=== PATIENT | male | born 1970 | race Two or more races ===

== ENCOUNTER 2017-12-11 15:44 | Emergency (ER) | payer SELFPAY ==
[~2017-12-11] VITALS: Ht 172.7 cm; Wt 72.0 kg
[2017-12-11 16:27] VITALS: BP 116/83
== END 2017-12-11 17:32 | disposition home or self-care (01) ==
LOC: ER 17:27
DX: H66.90 Otitis media, unspecified, unspecified ear (principal)
CPT/HCPCS: 99283

== ENCOUNTER 2022-02-12 17:59 | Emergency (ER) | payer MEDICAID ==
[~2022-02-12] VITALS: Ht 170.2 cm; Wt 82.0 kg
[2022-02-12] MEDS ORDERED: ELVI1TAB3 PO (18:22)
[2022-02-12] MEDS ORDERED: LORA-250 PO (18:22)
[2022-02-12] MEDS ORDERED: HYDROCODONE/ACETAMINOPHEN 5/325MG TABLET PO NR (18:30)
[2022-02-12] MEDS ORDERED: HYDROCODONE/ACETAMINOPHEN 5/325MG TABLET PO ONE (18:30)
[2022-02-12] MEDS ORDERED: IBUP-2029 MT (20:06)
[2022-02-12 20:57] VITALS: BP 136/75
== END 2022-02-12 20:51 | disposition home or self-care (01) ==
LOC: ER 17:59
DX: S46.092A Other injury of muscle(s) and tendon(s) of the rotator cuff of left shoulder, initial encounter (principal); Z21 Asymptomatic human immunodeficiency virus [HIV] infection status; W01.0XXA Fall on same level from slipping, tripping and stumbling without subsequent striking against object, initial encounter; Y93.89 Activity, other specified; Y92.89 Other specified places as the place of occurrence of the external cause; Y99.8 Other external cause status
CPT/HCPCS: 73030; 99283

== ENCOUNTER 2022-03-05 17:29 | Emergency (ER) | payer MEDICAID ==
[~2022-03-05] VITALS: Ht 172.7 cm; Wt 82.0 kg
[~2022-03-05 17:29] MED LIST: ELVI1TAB3 PO; IBUP-2029 MT; LORA-250 PO
[2022-03-05] MEDS ORDERED: IBUPROFEN 400MG TABLET PO ONE (22:30)
[2022-03-05] MEDS ORDERED: CEFTRIAXONE SODIUM 500 MG/VIAL IM ONE (22:30)
[2022-03-05] MEDS ORDERED: AZITHROMYCIN 500 MG TABLET PO ONE (22:30)
[2022-03-05] MEDS ORDERED: LIDOCAINE HCL 1% 20ML VIAL (Pyxis) INJ INFIL ONE (22:30)
[2022-03-05 23:22] VITALS: BP 142/88
[2022-03-06] MEDS ORDERED: IBUP-2028 MT (01:20)
== END 2022-03-06 01:36 | disposition home or self-care (01) ==
LOC: ER 17:29
DX: J02.9 Acute pharyngitis, unspecified (principal); Z79.899 Other long term (current) drug therapy
CPT/HCPCS: 87070; 87430; 96372; 99283; J0696